=== PATIENT | female | born 1945 | race Hispanic/Latino ===

== ENCOUNTER → 2018-05-04 | Outpatient (CLI) | payer OTHER | END | disposition home or self-care (01) | LOC: OIH 16:08 | PROVIDERS: ATTEND Family Medicine | DX: M25.511 Pain in right shoulder (principal) | CPT/HCPCS: 73030 ==

== ENCOUNTER → 2019-01-06 | Outpatient (CLI) | payer OTHER | END | disposition home or self-care (01) | LOC: RAH 09:03 | PROVIDERS: ATTEND Family Medicine | DX: K76.0 Fatty (change of) liver, not elsewhere classified (principal); T45.3X Poisoning by, adverse effect of and underdosing of enzymes | CPT/HCPCS: 76700 ==

== ENCOUNTER → 2019-03-10 | Outpatient (CLI) | payer OTHER ==
[~2019-03-10] MED LIST: IOHEXOL-350 75 ML VIAL IV ONE
== END | disposition home or self-care (01) ==
LOC: RAH 07:21
PROVIDERS: ATTEND Internal Medicine Gastroenterology
DX: R19.04 Left lower quadrant abdominal swelling, mass and lump (principal)
CPT/HCPCS: 74178; Q9967

== ENCOUNTER → 2019-10-03 | Outpatient (CLI) | payer OTHER | END | disposition home or self-care (01) | LOC: RAH 12:50 | PROVIDERS: ATTEND Family Medicine | DX: J98.4 Other disorders of lung (principal); R05 Cough | CPT/HCPCS: 71046; 76536 ==

== ENCOUNTER 2023-11-11 22:21 | Observation (INO) | payer OTHER ==
[~2023-11-11] VITALS: Ht 154.9 cm; Wt 79.7 kg
[2023-11-11 22:55] LABS: BASOPHILS # (AUTO) 0.04 K/uL (0.00-0.20); BASOPHILS % (AUTO) 0.6 % (0.0-5.0); EOSINOPHILS # (AUTO) 0.15 K/uL (0.00-0.70); EOSINOPHILS % (AUTO) 2.3 % (0.0-8.0); HEMATOCRIT 34.1 % (36-48); IMMATURE GRANULOCYTE ABSOLUTE 0.03 K/uL (0-1); LYMPHOCYTES # (AUTO) 1.8 K/uL (1.0-4.8); LYMPHOCYTES % (AUTO) 28.6 % (21.0-51.0); MEAN CORPUSCULAR HGB CONC 32.6 g/dL (32.0-36.0); MEAN CORPUSCULAR VOLUME 85.9 fL (79-99); MONOCYTES # (AUTO) 0.8 K/uL (0.1-1.0); MONOCYTES % (AUTO) 11.9 % (3.0-13.0); NEUTROPHILS # (AUTO) 3.6 K/uL (1.8-7.7); NEUTROPHILS % (AUTO) 56.1 % (40.0-77.0); PLATELET COUNT (AUTO) 115 K/uL (130-400); RED BLOOD CELL COUNT(AUTO) 3.97 MIL/uL (4.00-5.50); RED CELL DISTRIBUTION WIDTH 15.3 % (11.0-15.5); WHITE BLOOD COUNT (AUTO) 6.4 K/uL (4.8-10.8)
[2023-11-11 23:02] LABS: CREATININE 0.7 mg/dL (0.5-1.0); POTASSIUM 3.7 mmol/L (3.5-5.1)
[2023-11-11 23:04] LABS: INR 1.09 (0.85-1.15); PROTHROMBIN TIME 12.8 SEC (9.6-11.6)
[2023-11-11 23:15] LABS: ALBUMIN 2.9 g/dL (3.5-5.0); BILIRUBIN,TOTAL 0.6 mg/dL (0.2-1.0); THYROID STIMULATING HORMONE 2.94 uIU/mL (0.36-3.74); TOTAL PROTEIN, SERUM 7.1 g/dL (6.0-8.3)
[2023-11-11 23:34] LABS: B-TYPE NATRIURETIC PEPTIDE 33 pg/mL (0-100)
[2023-11-12] MEDS ORDERED: DOCUSATE SODIUM 100 MG CAP PO PRN (01:00)
[2023-11-12] MEDS ORDERED: ACETAMINOPHEN 325 MG TAB PO PRN (01:00)
[2023-11-12] MEDS ORDERED: ONDANSETRON 4MG INJ IVP PRN (01:00)
[2023-11-12] MEDS ORDERED: IPRATROPIUM/ALBUTEROL SULFATE 3 ML SOLUTION IH PRN (01:00)
[2023-11-12] MEDS ORDERED: HYDRALAZINE 20MG/ML VIAL IV PRN (01:00)
[2023-11-12] MEDS ORDERED: ACETAMINOPHEN 650 MG SUPPOSITORY RC PRN (01:00)
[2023-11-12] MEDS ORDERED: LACTULOSE 20 GM/30 ML UDCUP PO PRN (01:00)
[2023-11-12] MEDS ORDERED: TEMAZEPAM 15 MG CAPSULE PO PRN (01:00)
[2023-11-12] MEDS: INSULIN HUMULIN R 100 UNIT/ML 3ML SQ SCH (07:30)
[2023-11-12 08:06] LABS: HEMOGLOBIN A1C 6.1 % (4.0-6.0)
[2023-11-12 08:18] VITALS: O2SAT 98
[2023-11-12] MEDS: HYDROCHLOROTHIAZIDE 25 MG TABLET PO SCH (08:30)
[2023-11-12] MEDS ORDERED: ATOR40TA71 PO (09:30)
[2023-11-12] MEDS ORDERED: LEVO25CA4 PO (09:30)
[2023-11-12] MEDS ORDERED: TRAZ-187 PO (09:30)
[2023-11-12] MEDS ORDERED: HYDR25TA PO (09:30)
[2023-11-12] MEDS ORDERED: NAPR-1023 PO (09:30)
[2023-11-12] MEDS ORDERED: ASPI-888 PO (09:30)
[2023-11-12] MEDS ORDERED: LOSA100T59 PO (09:30)
[2023-11-12] MEDS ORDERED: GLIP5TAB15 PO (09:30)
[2023-11-12] MEDS: LEVOTHYROXINE 25 MCG TABLET PO SCH (09:35)
[2023-11-12] MEDS: ASPIRIN 81MG CHEW TAB PO SCH (10:35)
[2023-11-12] MEDS ORDERED: TRAZODONE HCL 100 MG TABLET PO PRN (12:00)
[2023-11-12] MEDS: LOSARTAN 50 MG TABLET PO SCH (12:04)
[2023-11-12 13:14] VITALS: BP 120/55; PULSE 50; RESP 17
[2023-11-12] MEDS ORDERED: ATORVASTATIN 40 MG TABLET PO SCH (21:00)
[2023-11-13] MEDS ORDERED: PANTOPRAZOLE 40 MG TAB DR PO SCH (09:00)
== END 2023-11-12 17:00 | disposition home or self-care (01) ==
LOC: EDH 22:21 → EDHIP 11-12 00:54 → 4AH 11-12 07:37
PROVIDERS: ADMIT Internal Medicine Pulmonary Disease; ATTEND Internal Medicine Pulmonary Disease
DX: I24.9 Acute ischemic heart disease, unspecified (principal); E11.649 Type 2 diabetes mellitus with hypoglycemia without coma; E03.9 Hypothyroidism, unspecified; I10 Essential (primary) hypertension; D69.6 Thrombocytopenia, unspecified; E78.00 Pure hypercholesterolemia, unspecified; E88.09 Other disorders of plasma-protein metabolism, not elsewhere classified; F19.90 Other psychoactive substance use, unspecified, uncomplicated; E78.5 Hyperlipidemia, unspecified; Z79.899 Other long term (current) drug therapy
CPT/HCPCS: 99285; 84443 ×2; 84484 ×4; 80053; 83880; 85025; 85610; 81025; 36415 ×2; 71045; 93005; 83036; 82948 ×3; 93306; 93356; 76376; 94664; G0378 ×15

== ENCOUNTER → 2023-12-15 | Outpatient (CLI) | payer OTHER ==
[~2023-12-15] MED LIST changes: +ASPI-888 PO; +ATOR40TA71 PO; +GLIP5TAB15 PO; +HYDR25TA PO; -IOHEXOL-350 75 ML VIAL IV ONE; +LEVO25CA4 PO; +LOSA100T59 PO; +NAPR-1023 PO; +TRAZ-187 PO
[2023-12-15 11:58] LABS: ALBUMIN 3.1 g/dL (3.5-5.0); CREATININE 1.1 mg/dL (0.5-1.0); POTASSIUM 4.7 mmol/L (3.5-5.1); TOTAL PROTEIN, SERUM 7.6 g/dL (6.0-8.3)
== END | disposition home or self-care (01) ==
LOC: LAB 10:53
PROVIDERS: ATTEND Student in an Organized Health Care Education/Training Program
DX: I25.10 Atherosclerotic heart disease of native coronary artery without angina pectoris (principal)
CPT/HCPCS: 36415; 80053

== ENCOUNTER → 2023-12-17 | Outpatient (CLI) | payer OTHER | END | disposition home or self-care (01) | LOC: RAH 10:39 | PROVIDERS: ATTEND Student in an Organized Health Care Education/Training Program | DX: I25.10 Atherosclerotic heart disease of native coronary artery without angina pectoris (principal); R07.9 Chest pain, unspecified; M47.815 Spondylosis without myelopathy or radiculopathy, thoracolumbar region | CPT/HCPCS: 75574 ==